=== PATIENT | male | born 1950 | race African-American/Black ===

== ENCOUNTER 2023-01-12 13:00 | Emergency (ER) | payer MEDICARE, MEDICAID ==
[~2023-01-12] VITALS: Ht 177.8 cm; Wt 100.0 kg
[2023-01-12] MEDS ORDERED: DICYCLOMINE 10 MG/5 ML ORAL SYR PO STA (13:35)
[2023-01-12] MEDS ORDERED: VISCOUS LIDOCAINE 2% 15 ML UDC PO STA (13:35)
[2023-01-12] MEDS ORDERED: MAGNESIUM/ALUMINUM HYDROXIDE/SIMETHICONE 30ML UDC PO STA (13:35)
[2023-01-12 14:59] LABS: HEMATOCRIT. 47.9 % (42.0-52.0); HEMOGLOBIN. 15.6 g/dL (14.0-18.0); MEAN CORPUSCULAR HEMOGLOBIN 25.8 pg (28.0-32.0); MEAN CORPUSCULAR VOLUME 78.9 fL (80.0-94.0); MEAN PLATELET VOLUME 9.3 fl (7.4-10.4); PLATELET 412 x1000/uL (130-400); RED BLOOD CELL COUNT 6.07 mill/uL (4.7-6.1); RED CELL DISTRIBUTION WIDTH 15.3 % (11.6-14.6)
[2023-01-12 15:03] LABS: CHLORIDE 101 mEq/L (98-107)
[2023-01-12 15:18] LABS: INR 1.1; PARTIAL THROMBOPLASTIN TIME 30.4 sec (23.4-31.0); PROTHROMBIN TIME 11.8 sec (9.6-11.0)
[2023-01-12] MEDS ORDERED: VISCOUS LIDOCAINE 2% 15 ML UDC PO NR (15:45)
[2023-01-12] MEDS ORDERED: MAGNESIUM/ALUMINUM HYDROXIDE/SIMETHICONE 30ML UDC PO NR (15:45)
[2023-01-12] MEDS ORDERED: INSULIN REGULAR (HUMULIN R) 300UNITS/3ML VIAL IV ONE (16:45)
[2023-01-12] MEDS ORDERED: CALCIUM GLUCONATE 1,000 MG in DEXT 5% WATER 100 ML IV ONE (16:45)
[2023-01-12] MEDS ORDERED: SODIUM BICARBONATE 8.4% 1 MEQ/ML 50ML SYR IV ONE (16:45)
[2023-01-12] MEDS ORDERED: DEXTROSE 50% WATER 50ML SYRINGE IV ONE (16:45)
[2023-01-12] MEDS ORDERED: ALBUTEROL (0.083%) 2.5MG/3ML NEB HHN SCH (17:00)
[2023-01-12] MEDS ORDERED: CALCIUM GLUCONATE 1GM PREMIX 50 ML IV NR (17:00)
[2023-01-12] MEDS ORDERED: CEFTRIAXONE 2GM/50ML (ADDEASE) 50 ML IV ONE (20:00)
[2023-01-12] MEDS ORDERED: CEFTRIAXONE 2 G in DEXTROSE 5% WATER 50 ML IV NR (20:15)
[2023-01-12 20:28] LABS: PLATELET ESTIMATE SLIGHTLY INCREASED
[2023-01-12 21:22] VITALS: BP 137/70
== END 2023-01-12 21:31 | disposition home or self-care (01) ==
LOC: ER 13:00
DX: K80.20 Calculus of gallbladder without cholecystitis without obstruction (principal); E87.5 Hyperkalemia; E11.9 Type 2 diabetes mellitus without complications; K21.9 Gastro-esophageal reflux disease without esophagitis; E78.00 Pure hypercholesterolemia, unspecified; I10 Essential (primary) hypertension
CPT/HCPCS: 36415; 71045; 74177; 76705; 80053; 83690; 83880; 84484; 85025; 85610; 85730; 93005; 96365; 96375; 99285; J0610; J0696; J1815; J3490; J7060